=== PATIENT | female | born 1975 | race Caucasian/White ===

== ENCOUNTER 2023-09-10 07:55 | Outpatient (CLI) | payer OTHER, SELFPAY ==
[2023-09-10 12:13] LABS: Hematocrit 46.4 % (37.0-47.0); Hemoglobin 14.7 g/dL (12.0-15.0); Mean Corpuscular HGB Conc 31.7 g/dl (32-36); Mean Corpuscular Hemoglobin 26.7 pg (26-34); Mean Corpuscular Volume 84.4 fl (80-100); Platelet Count Result 319 k/mm3 (150-375); Red Cell Distribution Width 13.4 % (11.5-14.5); White Blood Count 9.4 K/mm3 (4.5-10.0)
[2023-09-10 12:32] LABS: LDL Cholesterol Direct 149 mg/dL
[2023-09-10 12:36] LABS: Alanine Aminotransferase 12 U/L (6-35); Albumin Level 3.9 g/dL (3.5-5.1); Alkaline Phosphatase 104 U/L (38-126); Anion Gap 3 mmol/L (4-12); Aspartate Amino Transferase 32 U/L (14-36); Bilirubin,Total 0.7 mg/dL (0.2-1.3); Blood Urea Nitrogen 9 mg/dL (7-17); Calcium 9.3 mg/dL (8.4-10.2); Carbon Dioxide 30 mmol/L (22-30); Chloride 100 mmol/L (98-107); Cholesterol 235 mg/dL (0-200); Estimated Glomerular Filt Rate > 60; Glucose 242 mg/dL (65-110); HDL Direct 56 mg/dL; Potassium 4.4 mmol/L (3.4-5.0); Sodium 133 mmol/L (137-145); Triglycerides 137 mg/dL (<150)
[2023-09-11 00:32] LABS: Creatine Kinase 43 U/L (30-135)
[2023-09-11 01:04] LABS: Hemoglobin A1C 11.8 % (<5.7)
== END 2023-09-10 07:56 | disposition home or self-care (01) ==
LOC: ANHGOSHLAB 07:56
PROVIDERS: PCP Family Medicine; Visit Provider Family Medicine
DX: M62.838 Other muscle spasm (principal); E11.9 Type 2 diabetes mellitus without complications; E66.9 Obesity, unspecified; Z79.899 Other long term (current) drug therapy
CPT/HCPCS: 36415; 80053; 80061; 82550; 83036; 84443; 85027

== ENCOUNTER 2023-09-19 10:40 | Emergency (ER) | payer OTHER, SELFPAY ==
[2023-09-19] VITALS (9 sets, daily range): BP systolic 118–142; BP diastolic 77–89; PULSE 84–114; RESP 14–19; TEMP 36.6–37.1; O2SAT 99–100
--- NOTE | ~2023-09-19 | XR_ITS ---
EXAMINATION: XR chest 2V DATE: 09/19/2023 11:14 INDICATION: Chest pain. Chest tightness. Dizziness. TECHNIQUE: Frontal and lateral views of the chest were obtained. COMPARISON: None. FINDINGS: There is no pneumonia, pleural effusion, or pneumothorax. The heart size is normal. IMPRESSION: 1. No acute cardiopulmonary disease. Reviewed, dictated and finalized at location A.
--- NOTE | 2023-09-19 10:42 | ECG_ITS ---
SEE SCANNED COPY FOR CONFIRMED REPORT MTDD
[2023-09-19 11:09] LABS: Basophils Absolute Auto 0.1 K/mm3 (0.0-0.1); Basophils Percent Auto 0.5 % (0.2-1.2); Eosinophils Absolute Auto 0.2 K/mm3 (0-0.3); Eosinophils Percent Auto 1.4 % (0-4.4); Hematocrit 45.1 % (37.0-47.0); Hemoglobin 14.8 g/dL (12.0-15.0); Immature Granulocyte Absolute 0.05 K/mm3 (0.00-0.031); Immature Granulocyte Percent A 0.5 % (0-0.5); Lymphocytes Absolute Auto 2.71 K/mm3 (0.9-3.2); Lymphocytes Percent Auto 25.2 % (18.3-44.2); Mean Corpuscular HGB Conc 32.8 g/dl (32-36); Mean Corpuscular Hemoglobin 26.9 pg (26-34); Mean Corpuscular Volume 81.9 fl (80-100); Mean Platelet Volume 9.8 fl (7.4-10.4); Monocytes Absolute Auto 0.7 K/mm3 (0.1-0.6); Monocytes Percent Auto 6.5 % (2.6-8.5); Neutrophils Absolute Auto 7.1 K/mm3 (1.3-6.7); Neutrophils Percent Auto 65.9 % (45.5-73.1); Platelet Count Result 274 k/mm3 (150-375); Red Blood Count 5.51 M/mm3 (4.2-5.4); Red Cell Distribution Width 13.1 % (11.5-14.5); White Blood Count 10.8 K/mm3 (4.5-10.0)
[2023-09-19 11:20] LABS: Alanine Aminotransferase 15 U/L (6-35); Albumin Level 4.4 g/dL (3.5-5.1); Alkaline Phosphatase 110 U/L (38-126); Anion Gap 9 mmol/L (4-12); Aspartate Amino Transferase 16 U/L (14-36); Bilirubin,Total 0.4 mg/dL (0.2-1.3); Blood Urea Nitrogen 11 mg/dL (7-17); Calcium 9.3 mg/dL (8.4-10.2); Carbon Dioxide 23 mmol/L (22-30); Chloride 101 mmol/L (98-107); Estimated CRCL calculation 131 ml/min; Estimated Glomerular Filt Rate > 60; Glucose 361 mg/dL (65-110); INR 0.9; Lipase 116 U/L (23-300); Potassium 4.3 mmol/L (3.4-5.0); Prothrombin Time 12.3 Seconds (11.1-14.7); Sodium 133 mmol/L (137-145)
[2023-09-19 11:21] LABS: Partial Thromboplastin Time 26.1 Seconds (22.3-36.8)
[2023-09-19 11:31] LABS: Troponin I < 0.012 ng/mL (0.000-0.034)
[2023-09-19] MEDS: MECLIZINE HCL 25 MG TABLET PO (12:13)
[2023-09-19] MEDS: SODIUM CHLORIDE 0.9% IV 1,000 ML 999 ML IV CONT (12:13)
[2023-09-19] MEDS: ONDANSETRON INJ 4 MG/2 ML VIAL IV PUSH (12:13)
--- NOTE | 2023-09-19 12:46 | ED.GENADULT ---
HPI - General Adult General Chief complaint: Chest Pain Stated complaint: chest pain Time Seen by Provider: 09/19/23 10:43 History of Present Illness HPI narrative: Patient is a 48-year-old female who presents to the ER with dizziness. Began last night and continues today. It hurt worse with movement of her head. It causes her nausea and chest tightness when her dizziness increases. Has not had this previously. No sinus congestion or sore throat or productive cough. No ringing in the ears. Related Data Allergies Allergy/AdvReac Type Severity Reaction Status Date / Time aspirin AdvReac Severe Difficulty Verified 09/19/23 10:41 Breathing empagliflozin AdvReac Severe Other Verified 09/19/23 10:41 [From Jardiance] sumatriptan [From Imitrex] AdvReac Severe Difficulty Verified 09/19/23 10:41 Breathing Review of Systems Review of Systems: All systems reviewed & are unremarkable except as noted in HPI and below Constitutional: Constitutional: Reports no additional constitutional complaints ENT: Reports vertigo, Denies nasal congestion and Denies sore throat Cardiovascular: Cardiovascular: Reports no additional cardiovascular complaints Respiratory: Respiratory: Reports no additional respiratory complaints Gastrointestinal: Gastrointestinal: Reports no additional gastrointestinal complaints Musculoskeletal: Musculoskeletal: Reports no additional musculoskeletal complaints PMFSH Past Medical History Medical History (Updated 09/19/23 @ 12:49 by Ricky Wall MD) Diabetes Hypertriglyceridemia Surgical History Surgical History (Updated 09/19/23 @ 12:47 by Ricky Wall MD) No pertinent past surgical history Family History Family History Father Diabetes mellitus Mother Diabetes mellitus Grandparent Diabetes mellitus Social History Social History Social History: Tea 1 cup daily Smoking packs per day: 2 Smoking cigarettes per day: 40.0 Years smoked: 20 Smoking pack-years: 40.00 Smoking status: Former smoker Tobacco type: cigarettes Alcohol intake: never Substance use: never Substance use type: does not use Living arrangements: with family Spiritual care concerns: No Exam Narrative: GENERAL: Well-appearing, well-nourished, and in no acute distress. HEAD: Normocephalic, atraumatic. EYES: PERRL and EOMI. ENT: Mucous membranes moist. TMs normal bilaterally. CHEST: Clear to auscultation. No respiratory distress. HEART: Regular rate and rhythm. Normal peripheral pulses. ABDOMEN: Soft, nontender, nondistended. EXTREMITIES: Normal range of motion. No edema. SKIN: Warm, dry, no rash. NEURO: Alert and oriented x3. PSYCH: Normal mood and affect. Course Course Emergency Course: Symptoms improved with fluids and meclizine. Discharge home with supportive care. Vital Signs Vital signs: Vital Signs Temperature 98.8 F 09/19/23 11:02 Pulse Rate 94 09/19/23 11:02 Respiratory Rate 16 09/19/23 11:02 Blood Pressure 142/89 H 09/19/23 11:02 Pulse Oximetry 100 09/19/23 11:02 Oxygen Delivery Room Air 09/19/23 11:02 Temperature 98.8 F 09/19/23 11:02 Pulse Rate 102 H 09/19/23 11:07 Respiratory Rate 16 09/19/23 11:02 Blood Pressure 122/85 09/19/23 11:07 Pulse Oximetry 100 09/19/23 11:02 Oxygen Delivery Room Air 09/19/23 11:05 Medical Decision Making Vital Signs Vital Signs: Vital Signs Temperature 98.8 F 09/19/23 11:02 Pulse Rate 94 09/19/23 11:02 Respiratory Rate 16 09/19/23 11:02 Blood Pressure 142/89 H 09/19/23 11:02 Pulse Oximetry 100 09/19/23 11:02 Oxygen Delivery Room Air 09/19/23 11:02 Temperature 98.8 F 09/19/23 11:02 Pulse Rate 102 H 09/19/23 11:07 Respiratory Rate 16 09/19/23 11:02 Blood Pressure 122/85 09/19/23 11:07 Pulse Oximetry 100 04
== END 2023-09-19 13:09 | disposition home or self-care (01) ==
PROVIDERS: Emergency Provider Emergency Medicine; PCP Family Medicine
DX: R42 Dizziness and giddiness (principal); E11.9 Type 2 diabetes mellitus without complications; F17.210 Nicotine dependence, cigarettes, uncomplicated
CPT/HCPCS: 36415; 71046; 80053; 83690; 84484; 85025; 85610; 85730; 93005; 96361; 96374; 99284; A9270; J2405; J7030

== ENCOUNTER 2023-10-01 07:04 | Day surgery (SDC) | payer OTHER, SELFPAY ==
[2023-09-08 10:12] VITALS: BMI 37.9
[2023-09-16 13:45] VITALS: BMI 36.5
--- NOTE | 2023-10-01 07:34 | WPDANESEPPF ---
Anes - Initial Pre Proc Eval Procedure: Operation Date: 10/01/23 09:30 Proposed Procedures p Screening Colonoscopy - Walt Del Rio MD Date/Time: 10/01/23 07:34 Surgeon: Walt Del Rio MD Pre Op Diagnosis: Screening for neoplasm of colon Patient Data Age: 48 Gender: F Height: 1.63 m Weight: 96.5 kg Allergies Allergy/AdvReac Type Severity Reaction Status Date / Time aspirin AdvReac Severe Difficulty Verified 10/01/23 08:13 Breathing empagliflozin AdvReac Severe Other Verified 10/01/23 08:13 [From Jardiance] sumatriptan [From Imitrex] AdvReac Severe Difficulty Verified 10/01/23 08:13 Breathing Home Medications Medication Instructions Recorded Confirmed Type cyclobenzaprine 10 mg tablet 10 mg PO TID PRN muscle spasm #30 09/05/23 10/01/23 Rx tabs metoprolol succinate 25 mg 25 mg PO DAILY #90 tabs 09/05/23 10/01/23 Rx tablet,extended release 24 hr Dexcom #1 ea 09/16/23 10/01/23 Rx atorvastatin 10 mg tablet 10 mg PO DAILY #90 tabs 09/16/23 10/01/23 Rx metformin 500 mg tablet,extended 2,000 mg PO DAILY #360 tabs 09/16/23 10/01/23 Rx release 24 hr sertraline 50 mg tablet 50 mg PO DAILY #90 tabs 09/16/23 10/01/23 Rx meclizine 12.5 mg tablet 12.5 mg PO TID PRN dizziness #14 09/19/23 10/01/23 Rx tabs Patient hx anesthesia problems: none Family hx anesthesia problems: none Results Review: All pre-operative results and documents have been reviewed as part of the pre-operative evaluation. [facility] Past Medical History Medical History (Updated 10/01/23 @ 07:34 by William Colby DO) Diabetes Hypertriglyceridemia Tachycardia Surgical History Surgical History (Updated 10/01/23 @ 07:34 by William Colby DO) History of hysterectomy Family History Family History Father Diabetes mellitus Mother Diabetes mellitus Grandparent Diabetes mellitus Social History Social History Social History: Tea 1 cup daily Smoking packs per day: 2 Smoking cigarettes per day: 40.0 Years smoked: 20 Smoking pack-years: 40.00 Smoking status: Former smoker Tobacco type: cigarettes Alcohol intake: never Substance use: never Substance use type: does not use Living arrangements: with family Spiritual care concerns: No Anes - Eval Final PreProcedure Day of Procedure 10/01/23 07:34 Patient weight: obese Heart: regular rate and rhythm Lungs: clear to auscultation Airway: Mallampati scale class II Neurological: alert and oriented Last oral intake: >/= 8 hours ASA classification: III Emergent: no Anesthetic plan: proceed Anesthesia type and monitoring: general GIVS and standard monitoring Results Review: All pre-operative results and documents have been reviewed as part of the pre-operative evaluation. Informed Consent: The patient's anesthetic plan and its attendant risks and benefits were discussed with the patient/family/POA. Questions were solicited and answers provided to the satisfaction of the patient/family/POA.
[2023-10-01 08:15] VITALS: BP 111/89; PULSE 90; RESP 16; TEMP 36.3; O2SAT 100; BMI 37.5
[2023-10-01] MEDS: LACTATED RINGERS 1,000 ML 150 ML IV CONT (08:32)
[2023-10-01 08:34] LABS: Glucose Point of Care 255 mg/dl (65-105)
--- NOTE | 2023-10-01 10:12 | PM.HPGS ---
History of Present Illness History of Present Illness Consent: Risks, benefits, and alternatives have been discussed and questions answered. Patient agrees to proceed with procedure. Chief complaint: Screening for neoplasm of colon Narrative: Sheila Snyder is a 48 year old female presents for screening colonoscopy. Patient reports her bowel habits are normal. She denies any bleeding. She has had no pain. Family history noncontributory. Review of Systems Review of Systems: All systems reviewed & are unremarkable except as noted in HPI and below PMFSH Past Medical History Medical History (Updated 10/01/23 @ 07:34 by William Colby DO) Diabetes Hypertriglyceridemia Tachycardia Surgical History Surgical History (Updated 10/01/23 @ 07:34 by William Colby DO) History of hysterectomy Family History Family History Father Diabetes mellitus Mother Diabetes mellitus Grandparent Diabetes mellitus Social History Social History Social History: Tea 1 cup daily Smoking packs per day: 2 Smoking cigarettes per day: 40.0 Years smoked: 20 Smoking pack-years: 40.00 Smoking status: Former smoker Tobacco type: cigarettes Alcohol intake: never Substance use: never Substance use type: does not use Living arrangements: with family Spiritual care concerns: No Meds Home Medications and Allergies Home Medications Medication Instructions Recorded Confirmed Type cyclobenzaprine 10 mg tablet 10 mg PO TID PRN muscle spasm #30 09/05/23 10/01/23 Rx tabs metoprolol succinate 25 mg 25 mg PO DAILY #90 tabs 09/05/23 10/01/23 Rx tablet,extended release 24 hr Dexcom #1 ea 09/16/23 10/01/23 Rx atorvastatin 10 mg tablet 10 mg PO DAILY #90 tabs 09/16/23 10/01/23 Rx metformin 500 mg tablet,extended 2,000 mg PO DAILY #360 tabs 09/16/23 10/01/23 Rx release 24 hr sertraline 50 mg tablet 50 mg PO DAILY #90 tabs 09/16/23 10/01/23 Rx meclizine 12.5 mg tablet 12.5 mg PO TID PRN dizziness #14 09/19/23 10/01/23 Rx tabs Allergies Allergy/AdvReac Type Severity Reaction Status Date / Time aspirin AdvReac Severe Difficulty Verified 10/01/23 08:13 Breathing empagliflozin AdvReac Severe Other Verified 10/01/23 08:13 [From Jardiance] sumatriptan [From Imitrex] AdvReac Severe Difficulty Verified 10/01/23 08:13 Breathing Vital Signs Vital Signs - 24 hr 10/01/23 08:15 Temperature 97.4 F L Pulse Rate 90 Respiratory Rate 16 Blood Pressure 111/89 Pulse Oximetry 100 Oxygen Delivery Room Air Exam Narrative: Physical exam reveals patient to be alert. Vital signs stable. HEENT exam is unremarkable. Patient is anicteric. Lungs are clear. Heart without murmur. Abdomen bowel sounds are present soft nontender with no organomegaly. Digital rectal exam is normal per Assessment and Plan Assessment and plan (1) Screening for colon cancer: Code(s): Z12.11 - Encounter for screening for malignant neoplasm of colon Status: Acute Assessment and Plan: Patient presents for screening colonoscopy. She appears to be at average risk for colon polyps.
[2023-10-01 10:43] VITALS: BP 125/84; PULSE 88; RESP 16; O2SAT 100
[2023-10-01 10:53] VITALS: BP 123/76; PULSE 90; RESP 16; O2SAT 100
[2023-10-01 11:03] VITALS: BP 125/77; PULSE 80; RESP 16; O2SAT 100
--- NOTE | 2023-10-01 13:34 | WPDANESPN ---
Anes - Prog Note Post-Op Date/Time: 10/01/23 13:34 Cardiovascular status: normal Respiratory status: normal Airway patency: baseline Mental status: baseline Post-Op hydration status: normal Vital Signs: Last Vital Signs Temp 36.3 C L 10/01/23 08:15 Pulse 80 10/01/23 11:03 Resp 16 10/01/23 11:03 BP 125/77 10/01/23 11:03 Pulse Ox 100 10/01/23 11:03 O2 Del Method Room Air 10/01/23 11:03 Pain Score (VAS): 0 I/O: Intake & Output 09/30/23 10/01/23 10/01/23 23:59 07:59 15:59 Intake Total 850 Balance 850 10/01/23 08:30 POC Capillary Glucose 255 H Post-procedural complaints: none Patient Feedback: Patient satisfied with anesthetic care. Other Findings: Patient vital signs back to baseline. Patient denies nausea and vomiting. Patient's pain under control. Patient OK for discharge.
== END 2023-10-01 11:10 | disposition home or self-care (01) ==
PROVIDERS: PCP Family Medicine; Visit Provider Internal Medicine Gastroenterology
PROC: 0DJD8ZZ Inspection of Lower Intestinal Tract, Via Natural or Artificial Opening Endoscopic (ICD-10-PCS; CPT 45378; principal; 2023-10-01 09:30)
DX: Z12.11 Encounter for screening for malignant neoplasm of colon (principal); K64.8 Other hemorrhoids
CPT/HCPCS: 45378

== ENCOUNTER 2023-12-16 08:11 | Outpatient (CLI) | payer OTHER, SELFPAY ==
[2023-12-16 13:09] LABS: Alanine Aminotransferase 15 U/L (6-35); Albumin Level 3.9 g/dL (3.5-5.1); Alkaline Phosphatase 142 U/L (38-126); Anion Gap 11 mmol/L (4-12); Aspartate Amino Transferase 39 U/L (14-36); Bilirubin,Total 0.5 mg/dL (0.2-1.3); Blood Urea Nitrogen 11 mg/dL (7-17); Calcium 9.4 mg/dL (8.4-10.2); Carbon Dioxide 26 mmol/L (22-30); Chloride 97 mmol/L (98-107); Cholesterol 156 mg/dL (0-200); Estimated Glomerular Filt Rate > 60; Glucose 336 mg/dL (65-110); HDL Direct 64 mg/dL; Potassium 4.5 mmol/L (3.4-5.0); Sodium 134 mmol/L (137-145); Triglycerides 99 mg/dL (<150)
[2023-12-16 13:20] LABS: LDL Cholesterol Direct 81 mg/dL
[2023-12-16 13:38] LABS: Creatinine Urine 48.5 mg/dL
[2023-12-16 13:41] LABS: MALB Creatinine Ratio < 12.4 mg/g (0-30); Microalbumin Urine Random < 6.0 mg/L (0-16.7)
[2023-12-17 18:39] LABS: Hemoglobin A1C 11.8 % (<5.7)
== END 2023-12-16 08:12 | disposition home or self-care (01) ==
LOC: ANHGOSHLAB 08:12
PROVIDERS: PCP Family Medicine; Visit Provider Nurse Practitioner
DX: E78.1 Pure hyperglyceridemia (principal); E11.9 Type 2 diabetes mellitus without complications
CPT/HCPCS: 36415; 80053; 80061; 82043; 83036

== ENCOUNTER 2024-03-04 09:00 | Outpatient (CLI) | payer OTHER, SELFPAY ==
[2024-03-04 14:49] LABS: Hematocrit 44.2 % (37.0-47.0); Hemoglobin 14.3 g/dL (12.0-15.0); Mean Corpuscular HGB Conc 32.4 g/dl (32-36); Mean Corpuscular Volume 83.6 fl (80-100); Mean Platelet Volume 10.3 fl (7.4-10.4); Platelet Count Result 322 k/mm3 (150-375); Red Blood Count 5.29 M/mm3 (4.2-5.4); Red Cell Distribution Width 12.9 % (11.5-14.5); White Blood Count 8.7 K/mm3 (4.5-10.0)
[2024-03-04 15:44] LABS: Alanine Aminotransferase 12 U/L (6-35); Albumin Level 4.2 g/dL (3.5-5.1); Alkaline Phosphatase 81 U/L (38-126); Anion Gap 8 mmol/L (4-12); Aspartate Amino Transferase 42 U/L (14-36); Bilirubin,Total 0.5 mg/dL (0.2-1.3); Blood Urea Nitrogen 10 mg/dL (7-17); Calcium 9.8 mg/dL (8.4-10.2); Carbon Dioxide 30 mmol/L (22-30); Chloride 97 mmol/L (98-107); Cholesterol 187 mg/dL (0-200); Estimated Glomerular Filt Rate > 60; Glucose 138 mg/dL (65-110); HDL Direct 50 mg/dL; Potassium 4.1 mmol/L (3.4-5.0); Sodium 135 mmol/L (137-145); Triglycerides 69 mg/dL (<150)
[2024-03-04 15:55] LABS: LDL Cholesterol Direct 110 mg/dL
[2024-03-04 16:04] LABS: Hemoglobin A1C 9.8 % (<5.7)
== END 2024-03-04 09:01 | disposition home or self-care (01) ==
LOC: ANHGOSHLAB 09:02
PROVIDERS: PCP Family Medicine; Visit Provider Family Medicine
DX: E11.9 Type 2 diabetes mellitus without complications (principal); E78.1 Pure hyperglyceridemia; E66.9 Obesity, unspecified; Z79.899 Other long term (current) drug therapy
CPT/HCPCS: 36415; 80053; 80061; 83036; 84443; 85027

== ENCOUNTER 2024-06-25 08:41 | Outpatient (CLI) | payer OTHER, SELFPAY ==
[2024-06-25 17:47] LABS: Hematocrit 41.5 % (37.0-47.0); Hemoglobin 13.5 g/dL (12.0-15.0); Mean Corpuscular HGB Conc 32.5 g/dl (32-36); Mean Corpuscular Hemoglobin 27.2 pg (26-34); Mean Corpuscular Volume 83.7 fl (80-100); Mean Platelet Volume 9.9 fl (7.4-10.4); Platelet Count Result 286 k/mm3 (150-375); Red Blood Count 4.96 M/mm3 (4.2-5.4); White Blood Count 7.7 K/mm3 (4.5-10.0)
[2024-06-25 18:26] LABS: Alanine Aminotransferase 13 U/L (6-35); Albumin Level 3.9 g/dL (3.5-5.1); Alkaline Phosphatase 106 U/L (38-126); Anion Gap 7 mmol/L (4-12); Aspartate Amino Transferase 20 U/L (14-36); Bilirubin,Total 0.6 mg/dL (0.2-1.3); Blood Urea Nitrogen 13 mg/dL (7-17); Calcium 8.9 mg/dL (8.4-10.2); Carbon Dioxide 30 mmol/L (22-30); Chloride 99 mmol/L (98-107); Cholesterol 221 mg/dL (0-200); Estimated Glomerular Filt Rate > 60; Glucose 176 mg/dL (65-110); HDL Direct 69 mg/dL; Potassium 4.2 mmol/L (3.4-5.0); Sodium 136 mmol/L (137-145); Triglycerides 71 mg/dL (<150)
[2024-06-25 18:32] LABS: LDL Cholesterol Direct 119 mg/dL
[2024-06-25 21:05] LABS: Hemoglobin A1C 8.6 % (<5.7)
== END 2024-06-25 08:42 | disposition home or self-care (01) ==
LOC: ANHGOSHLAB 08:43
PROVIDERS: PCP Family Medicine; Visit Provider Family Medicine
DX: E78.5 Hyperlipidemia, unspecified (principal); E11.9 Type 2 diabetes mellitus without complications; E78.1 Pure hyperglyceridemia; E66.9 Obesity, unspecified; Z79.899 Other long term (current) drug therapy
CPT/HCPCS: 36415; 80053; 80061; 83036; 84443; 85027

== ENCOUNTER 2024-07-16 16:56 | Emergency (ER) | payer OTHER, SELFPAY ==
--- NOTE | ~2024-07-16 | XR_ITS ---
Exam: Abdomen 1V HISTORY: left CVA tenderness. COMPARISON: None. TECHNIQUE: Supine images of the abdomen FINDINGS: Bowel gas pattern is non-obstructive. There is no free air or deep sulci. 11 mm focus of increased density projects to the left of midline presumably projecting over the left kidney. Lung bases are unremarkable. Bones and soft tissues are unremarkable. IMPRESSION: Nonspecific, nonobstructive bowel gas pattern. Possible 11 mm left renal calculus, as detailed above. Reviewed, dictated and finalized at location A. ORT RAMP AGENT
--- NOTE | 2024-07-16 16:59 | ED.FEMALEGU ---
HPI - Female Genitourinary General Chief complaint: Urogenital-Female Stated complaint: uti symptoms Time Seen by Provider: 07/16/24 16:57 Source: patient Mode of arrival: ambulatory Limitations: no limitations History of Present Illness HPI Narrative: Patient is a 49-year-old female who presents with left low back pain that started 3 days ago. Patient then developed mild burning with urination. Denies history of kidney stone. Denies any fever, chills, nausea, vomiting. States she has been drinking in increased amount cranberry juice and water. Denies any blood in urine MD elicited complaint: dysuria Related Data Home Medications ?Medication ?Instructions ?Recorded ?Confirmed ?Last Taken ?Type sertraline 100 mg tablet 100 mg PO DAILY 06/29/24 06/29/24 Unknown History Allergies Allergy/AdvReac Type Severity Reaction Status Date / Time aspirin AdvReac Severe Difficulty Verified 07/16/24 17:18 Breathing empagliflozin (From AdvReac Severe Other Verified 07/16/24 17:18 Jardiance) sumatriptan (From Imitrex) AdvReac Severe Difficulty Verified 07/16/24 17:18 Breathing Review of Systems Review of Systems: All systems reviewed & are unremarkable except as noted in HPI and below Constitutional: Constitutional: Denies chills, Denies fever(s), Denies headache(s), Denies malaise and Denies weakness Eyes: Eyes: Denies change in vision, Denies eye discharge and Denies irritation ENT: Denies otalgia, Denies headache(s), Denies nasal congestion, Denies nasal discharge, Denies sinus pain and Denies sore throat Cardiovascular: Cardiovascular: Denies chest pain, Denies edema, Denies palpitations and Denies dyspnea Respiratory: Respiratory: Denies cough and Denies dyspnea Gastrointestinal: Gastrointestinal: Denies abdominal pain, Denies diarrhea, Denies nausea and Denies vomiting Genitourinary: Genitourinary: Denies hematuria, Denies nocturia, Reports dysuria, Reports flank pain and Reports urinary urgency Musculoskeletal: Musculoskeletal: Denies back pain and Denies numbness Integumentary/Breasts: Skin/Breast: Denies pruritus and Denies rash Neurologic: Denies headache(s), Denies numbness and Denies weakness Psychiatric: Psychiatric: Reports no additional psychiatric complaints Endocrine: Endocrine: Denies palpitations PMFSH Past Medical History Medical History Hypertriglyceridemia Tachycardia Diabetes Surgical History Surgical History History of hysterectomy Family History Family History Father Diabetes mellitus Mother Diabetes mellitus Grandparent Diabetes mellitus Social History Social History Social History: Tea 1 cup daily Smoking packs per day: 2 Smoking cigarettes per day: 40.0 Years smoked: 20 Smoking pack-years: 40.00 Smoking status: Former smoker Tobacco type: cigarettes Alcohol intake: never Substance use: never Substance use type: does not use Living arrangements: with family Spiritual care concerns: No Comments At time of signature, agree with nursing past medical, surgical, social and family history. There is no relevant family history pertinent to the presenting complaint. Exam Const: General: cooperative, healthy appearing, comfortable, no acute distress and well nourished Nutritional Appearance: well nourished Orientation/consciousness: patient oriented x3 HENMT: Head: normocephalic and atraumatic Ears: external ears normal Face/Nose/Sinus: Normal external nose present, Normal nares present and normal facial exam Face and sinus: normal facial exam Eyes: General: appearance normal, both eyes and all related structures Pupils: Equal, round and reactive pupils present EOM: EOMs intact bilaterally Neck: Neck: normal visual inspection, full ROM and supple Chest: Chest palpation & inspection: normal inspection of the chest Resp: Effort & Inspection: normal respiratory effort and able to speak in complete sentences Cardio: Rate: regular rate Rhythm: regular rhythm GI: Inspection: normal to inspection GI Palp: No abdominal tenderness and Yes Soft to palpation : General: Yes CVA tenderness on the left Back/Spine/Pelvis: Back: no CVA tenderness Skin: General skin exam: normal color and no rashes or lesions noted Neuro: General: patient oriented x3 and moves all extremities Cranial nerves: Yes Equal, round and reactive pupils present Extrem: General: normal to inspection and full ROM Psych: Appearance: grossly normal and well kempt Course Course Emergency Course: Patient being transferred to [facility] for 11 mm kidney stone. Urology MD torres recommends CT scan. Pain management Portions of this record may have been created with voice recognition software Level of Care: Express Care Visit Vital Signs Vital signs: Vital Signs Temperature 37.1 C 07/16/24 17:11 Pulse Rate 103 H 07/16/24 17:11 Respiratory Rate 16 07/16/24 17:11 Blood Pressure 112/77 07/16/24 17:11 Pulse Oximetry 100 07/16/24 17:11 Temperature 37.1 C 07/16/24 17:11 Pulse Rate 103 H 07/16/24 17:11 Respiratory Rate 16 07/16/24 17:11 Blood Pressure 112/77 07/16/24 17:11 Pulse Oximetry 100 07/16/24 17:11 Reviewed Transfer Transfered to: [facility] Transportation: Other (Private auto) Transfer rationale: 11 mm kidney stone. Urology MD torres recommends CT scan. Pain management Accepting physician: Gladys MALDONADO MDM - Female Genitourinary MDM Narrative Medical decision making narrative: Patient has significant CVA tenderness even on light palpation. KUB showed 11 mm stone with high probability of still in kidney. Called and spoke with MD torres with Urology about plan of care. Recommendation for CT scan to confirm kidney stone placement along with any obstruction or hydronephrosis. Also concern for smaller stone movement that is not visible on KUB. Discussed plan of care with patient and they are in agreement. Differential Diagnosis Differential diagnosis: Likely urinary tract infection and other (Kidney stone) Medical Records Attestation: I reviewed the patient's medical records. Lab Data Attestation: I reviewed the patient's lab results. Labs: Lab Results 07/16/24 Range/Units 17:16 POC Urine Color Dark POC Urine Clarity Clear POC Urine pH 6.0 POC Ur Specif [place] 1.030 POC Urine Protein 2+ (Negative) POC Ur Glucose (UA) Negative (Negative) POC Urine Ketones Negative (Negative) POC Urine Blood Negative (Negative) POC Urine Nitrite Negative (Negative) POC Urine Bilirubin Negative (Negative) POC Urine Urobilinogen 1.0 POC U Leukocyte Esteras Trace (Negative) Imaging Data Radiologist's impression: FINDINGS: Bowel gas pattern is non-obstructive. There is no free air or deep sulci. 11 mm focus of increased density projects to the left of midline presumably projecting over the left kidney. Lung bases are unremarkable. Bones and soft tissues are unremarkable. IMPRESSION: Nonspecific, nonobstructive bowel gas pattern. Possible 11 mm left renal calculus, as detailed above. Discharge Plan Discharge Clinical Impression: Renal calculus or stone Patient Disposition: Acute Care Hospital Condition: Stable Additional Instructions: Flomax as prescribed. Pain medication as needed and directed. Drink plenty of fluids. Strain urine to collect stone. Call your doctor in the morning to make a follow-up appointment for further care. Return to the ER if needed for severely worsening symptoms or problems. Patient Language: Azeri Prescriptions: No Action cyclobenzaprine 10 mg tablet 10 mg PO TID PRN (Reason: muscle spasm) Qty: 30 0RF ropinirole 0.5 mg tablet 0.5 mg PO QHS Qty: 90 1RF atorvastatin [Lipitor] 20 mg tablet 20 mg PO QHS Qty: 90 1RF lisinopril 2.5 mg tablet 2.5 mg PO DAILY Qty: 90 1RF sertraline 100 mg tablet 100 mg PO DAILY meloxicam 7.5 mg tablet 7.5 mg PO DAILY Qty: 90 0RF (DME) FreeStyle Natalia 3 [place] Misc See Rx Instructions .Route Qty: 1 5RF Rx Instructions: As directed (DME) FreeStyle Nataila 3 Sensor Device See Rx Instructions .Route Qty: 3 5RF Rx Instructions: As directed metformin 500 mg tablet extended release 24 hr 2,000 mg PO DAILY Qty: 360 1RF metoprolol succinate 25 mg tablet extended release 24 hr 25 mg PO DAILY Qty: 90 1RF omeprazole 20 mg capsule,delayed release(DR/EC) 20 mg PO DAILY Qty: 90 1RF Mounjaro 7.5 mg/0.5 mL pen injector 7.5 mg subcut WEEKLY Qty: 2 0RF Follow-up/Referrals: Saúl Torres MD [Physician] - 2 Days (FINDINGS: Bowel gas pattern is non-obstructive. There is no free air or deep sulci. 11 mm focus of increased density projects to the left of midline presumably projecting over the left kidney. Lung bases are unremarkable. Bones and soft tissues are unremarkable. IMPRESSION: Nonspecific, nonobstructive bowel gas pattern. Possible 11 mm left renal calculus, as detailed above.) Anila Fairchild DO [Primary Care Provider] - 3 Days Time of Disposition: 18:28
[2024-07-16 17:11] VITALS: BP 112/77; PULSE 103; RESP 16; TEMP 37.1; O2SAT 100
[2024-07-16 17:20] LABS: EDUAAPPEAR Clear; EDUABILI Negative (Negative); EDUABLOOD Negative (Negative); EDUACOLOR1 Dark; EDUAGLUCOSE Negative (Negative); EDUAKETONE Negative (Negative); EDUALEUKO Trace (Negative); EDUANITRATE Negative (Negative); EDUAPROTEIN 2+ (Negative)
== END 2024-07-16 18:44 | disposition short-term general hospital (02) ==
PROVIDERS: Emergency Provider Nurse Practitioner Family; PCP Family Medicine
DX: N20.0 Calculus of kidney (principal); Z87.891 Personal history of nicotine dependence; E11.9 Type 2 diabetes mellitus without complications; E78.1 Pure hyperglyceridemia
CPT/HCPCS: 74018; 81003; 99213; G0463

== ENCOUNTER 2024-07-16 18:51 | Emergency (ER) | payer OTHER, SELFPAY ==
--- NOTE | ~2024-07-16 | CT_ITS ---
CLINICAL INDICATION: Left flank pain COMPARISON: None. TECHNIQUE: Multiple contiguous axial images of the abdomen and pelvis were performed without the admi nistration of intravenous contrast The dose-length product (DLP) was 1053.98 mGy-cm. Automated exposure control and iterative reconstruction technique were employed. FINDINGS/OBSERVATIONS: Visualized lower thorax: The bilateral lung bases are clear. The heart is of normal size, without pericardial effusion. Small hiatal hernia is present. Liver: The liver demonstrates homogeneous attenuation and is enlarged measuring 20 cm in longitudinal dimens ion. Gallbladder and biliary system: The gallbladder is only minimally distended, and otherwise unremarkable. Pancreas: Limited evaluation of the pancreas secondary to the lack of intravenous contrast. Spleen: Punctate calcifications identified within the splenic parenchyma, suggesting prior granulomatous dise ase. The remainder of the spleen demonstrates otherwise homogeneous attenuation and is not enlarged measur ing cm in longitudinal dimension. Kidneys: Punctate calcifications within the right kidney suggesting medullary calcinosis. A 10 mm calculus is identified within the lower pole of the left kidney. No hydronephrosis is detected bilaterally. Adrenal glands: Unremarkable. Gastrointestinal tract: Colonic diverticulosis without surrounding inflammatory change. Fecal stasis within the colon. Appendix: The air-filled appendix is of normal caliber (axial series, images 151 through 157). Vasculature: Trace calcified atherosclerotic disease. Lymph nodes: Limited evaluation without intravenous contrast. Pelvic structures: The bladder is compressed, and otherwise unremarkable The uterus is surgically absent. Body wall and musculoskeletal: Degenerative disease within the lumbar spine specifically at the level of L2/L3 with osteophyte forma tion, disc space narrowing, and endplate changes. IMPRESSION: 10 mm calculus within the lower pole of the left kidney without hydronephrosis. Hepatomegaly. 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 Reviewed, dictated and finalized at location A. [employer] STUDENT [employer]ION
--- OUTSIDE RECORDS SUMMARY | 2024-07-16 18:53 | XMS_ITS | Encounter Summary ---
Author Organization [facility] Address [address] [place] [id number] Care Team Providers Care Plaster And Stucco Worker Name Role Phone Kael Scott MD Primary Care Provider [phone] Encounter Details Date Type Department Care Team (Late st Contact Info) Description 11/14/2018 Abstract SFL CONVERSION [address] [place] [id number] , Generic Conversion, Social History Tobacco Use Types Packs/Day Years Used Date Smoking Tobacco: Never Assessed Comments Unknown Sex and Gender Information Value Date Recorded Sex Assigned at Not on file Legal Sex Female 8:01 PM CDT Gender Identity Not on file Sexual Orientation Not on file documented as of this encounter Plan of Treatment Not on file documented as of this encounter Visit Diagnoses Not on filedocumented in this encounter Additional Health Concerns Infection Onset Date Last Indicated Resolved Time COVID-19 Rule Out 05/13/2020 05/13/2020 05/14/2020 5:53 PM [employer] COVID-19 Confirmed Comment:Known COVID-19 positive per chart, symptom onset 02/22/21 per chart, confirmed positive w/ [facility] ([facility]) In collaboration with 4th floor schedule planning manager, Dr. Bonilla, and IP, patient cleared from COVID-19 isolation [facility] ([facility] 03/05/2021 03/05/202103/06 3:48 PM CDT documented as of this encounter Care Teams Plaster And Stucco Worker Relationship Specialty Start Date End Date Kael Scott MD [address] [place] [id number] PCP - General FAMILY PRACTICE 06/04/19 documented as of this encounter
--- OUTSIDE RECORDS SUMMARY | 2024-07-16 18:53 | XMS_ITS | Clinical Summary ---
Author Organization [facility] Address [address] [place] [address] Care Team Providers Care Sand Screener Operator Name Role Phone Kael Scott MD Primary Care Provider Allergies Active Allergy Reactions Criticality Noted Date Comments Aspirin GI Upset 05/09/2020 Sumatriptan Shortness of Breath High 05/09/2020 Medications atorvastatin 80 MG tabletIndicati ons:Hyperlipid emia Take 40 mg by mouth nightly at bedtime. Indications: High Amount of Fats in the Blood 8 Active Multiple Vitamins-[place] als (MULTIVITAMIN ADULTS OR)Indications :Nutritional Support Take by mouth daily. Indications: Nutritional Support Active metoprolol succinate ER 25 MG 24 hr tablet Take 25 mg by mouth daily. 1 Active insulin glargine 100 UNIT/ML injection (PEN) Inject 18 Units into the skin nightly at bedtime. 1 pen 1 Active insulin lispro, 1 Unit Dial, 100 UNIT/ML injection (PEN) Inject 7 Units into the skin see administration instructions. Humalog 7 units for breakfast and lunch, 10 units for supper meal. 1 pen 1 Active cyclobenzaprin e (FLEXERIL) 10 MG tablet Take 1 tablet by mouth daily. 2 Active naproxen (NAPROSYN) 500 MG tablet Take 1 tablet by mouth daily as needed. 2 Active HYDROcodone-ac etaminophen (NORCO) 5-325 MG tabletIndicati ons:Chronic Pain Take 1-2 tablets by mouth every 6 (six) hours as needed. Indications: Chronic Pain 30 tablet 2 Active Active Problems Problem Noted Date Diagnosed Date Nontraumatic incomplete tear of left rotator cuf f 02/18/2022 Biceps tendinitis of left upper extremity 2021 Type 2 diabetes mellitus wit hout complication, unspecified whether group home insulin use ([facility]) 03/04/2021 Overview (03/04/2021): Without manager terminal insulin use DKA (diabetic ketoacidosis) ([facility]) Pneumonia due to COVID-19 virus 03/03/2021 Immunizations Name Administration Dates Next Due Fluzone 6 Months+ Quad (0.5 mL Prefilled Syringe ) 03/07/2021 Family History Medical History Relation Comments Diabetes Father Relation Status Comments Father Alive Mother Alive Social History Tobacco Use Types Packs/Day Years Used Date Smoking Tobacco: Former Smokeless Tobacco: Never Alcohol Use Standard Drinks/Week Comments Not Currently 0 (1 standard drink = 0.6 oz pur e alcohol) Humiliation, Afraid, Rape, and Kick questionnair e Answer Date Recorded Within the last year, have y ou been afraid of your partner or ex-partner? No 03/03/2021 Within the last year, have y ou been humiliated or emotionally abused in other ways by your partner or ex-partner? No Within the last year, have y ou been kicked, hit, slapped, or otherwise physically hurt by your partner or ex-partner? No 03/03/2021 Within the last year, have y ou been raped or forced to have any kind of sexual activity by your partner or ex-partner? No 03/03/2021 Social Connection and Isolat ion Panel [NHANES] Answer Date Recorded In a typical week, how many times do you talk on the phone with family, friends, or neighbors? More than three times a week 03/04/2021 How often do you get togethe r with friends or relatives? More than three times a week 03/04/2021 How often do you attend chur or confucianism services? Never 03/04/2021 Do you belong to any clubs o r organizations such as scientologist groups, unions, fraternal or athletic groups, or school groups? No 03/04/2021 How often do you attend meet ings of the clubs or organizations you belong to? Never 03/04/2021 Marital Status Not on file 03/04/2021 AUDIT-C Answer Date Recorded Q1: How often do you have a drink containing alc ohol? Never 03/04/2021 Average Number of Drinks Not on file 021 Frequency of Binge Drinking Not on file 02/08 Overall Financial Resource Strain (CARDIA) Answe r Date Recorded How hard is it for you to pa y for the very basics like food, housing, medical care, and heating? Not hard at all 03/04/2021 PHQ-2 Answer Date Recorded PHQ-2 Score - If the patient scores above 3, please move on to questions 3-9 0 03/04/2021 [facility] of Occupat ional Health - Occupational Stress Questionnaire Answer Date Recorded Do you feel stress - tense, restless, nervous, or anxious, or unable to sleep at night because your mind is troubled all the time - these days? Not at all 03/04/2021 Hunger Vital Sign Answer Date Recorded Within the past 12 months, y ou worried that your food would run out before you got the money to buy more. Never true 03/04/20 21 Within the past 12 months, t he food you bought just didn't last and you didn't have money to get more. Never true 03/04/2021 PRAPARE - Transportation Answer Date Re corded In the past 12 months, has l ack of transportation kept you from medical appointments or from getting medications? No 02/08 In the past 12 months, has l ack of transportation kept you from meetings, work, or from getting things needed for daily living? No 03/04/2021 Housing Stability Vital Sign Answer Stu e Recorded In the last 12 months, was t here a time when you were not able to pay the mortgage or rent on time? No 03/04/2021 Number of Places Lived in the Last Year Not on f ile 03/04/2021 In the last 12 months, was t here a time when you did not have a steady place to sleep or slept in a correction (including now)? No 03/04/2021 Comments No Sex and Gender Information Value Date Recorded Sex Assigned at Not on file Legal Sex Female 8:01 PM CDT Gender Identity Not on file Sexual Orientation Not on file Last Filed Vital Signs Vital Sign Reading Time Taken Comments Blood Pressure 117/73 03/07/2021 7:51 AM CDT Pulse 103 03/07/2021 7:51 AM CDT Temperature 36.4 C (97.5 F) 03/07/2021 7:51 AM CDT Respiratory Rate 20 03/07/2021 7:51 AM CDT Oxygen Saturation 97% 03/07/2021 7:51 AM CDT Inhaled Oxygen Concentration - - Weight 100.7 kg (222 lb) 04/09/2022 3:48 PM CDT Height 162.6 cm (5' 4 ) 04/09/2022 3:48 PM CDT Body Mass Index 38.11 04/09/2022 3:48 PM CDT Plan of Treatment Health Maintenance Due Date Last Done Comments Colorectal Cancer Screening Colonoscopy (10 Years) 1976 Kidney Health Evaluation 1976 Lipid Panel 1976 Annual Physical 1979 Pneumococcal Vaccine: Pediatrics (0 to 5 Years) and At-Risk Patients (6 to 64 Years) (1 of 2 - PCV) 1982 DTaP, Tdap and Td Vaccines (2 - Tdap) 1987 01/07/1987, 01/07/1982, 02/07/1977, Additional history exists Diabetes: Retinopathy Eye Exam 1994 Hepatitis C 1994 Hepatitis B Vaccines (1 of 3 - 19+ 3-dose series) 1995 Mammogram Screening 2016 Hemoglobin A1C 09/02/2021 03/05/2021 COVID-19 Vaccine (3 - 2023- season) 2024 10/13/2020, 09/15/2020 Influenza Adult (#1) 2024 03/07/2021 Meningococcal B Vaccine Aged Out No l onger eligible based on patient's age to complete this topic Meningococcal Vaccine Aged Out No jeremiah roman eligible based on patient's age to complete this topic RSV Immunizations Under 20 Months Aged Out No longer eligible based on patient's age to complete this topic Procedures Procedure Name Priority Date/Time Associated Diagnosis Comments HEMOGLOBIN, GLYCOSYLATED STAT 03/05/2021 5:20 AM CDT from Last 3 Months or Most Recently Relevant to Health Maintenance Results * (ABNORMAL) HEMOGLOBIN, GLYCATED (03/05/2021 5:20 AM CDT) HGB A1C 9.4(H) <5.7 % 03/05/2021 6:[address] [facility] ESTIMATED AVG GLUCOSE 223(H) 74 - 114 MG/DL 03/05/2021 6:[address] [facility] 03/05/2021 5:20 AM CDT Chaya Hernandez MD LABORATORY Final Result Performing Organization Address City/State/[facility] Co de Phone Number [facility] [address] [place] [address], [phone] from Last 3 Months or Most Recently Relevant to Health Maintenance Insurance ROSIO RAYA [phone] [employer] Advance Directives * Full Code (Latest Code Status on File) Date Activated Date Inactivated Comments 03/05/2021 3:35 AM 03/07/2021 4:32 PM * Full Code Date Activated Date Inactivated Comments 03/04/2021 11:12 PM 03/05/2021 3:32 AM * Full Code Date Activated Date Inactivated Comments 05/16/2020 2:06 PM 05/17/2020 2:09 PM Care Teams Sand Screener Operator Relationship Specialty Start Date End Date Kael Scott MD [address] [place] [address] PCP - General FAMILY PRACTICE 06/04/19
[2024-07-16 18:55] VITALS: BP 126/75; PULSE 102; RESP 17; TEMP 36.5; O2SAT 100
--- NOTE | 2024-07-16 19:51 | ED.FEMALEGU ---
HPI - Female Genitourinary General Chief complaint: Urogenital-Female Stated complaint: kidney stone Time Seen by Provider: 07/16/24 19:51 Focused HPI: This is a 49-year-old female that presents to the emergency department for left flank pain. Ongoing over the last couple of days. Reports some associated dysuria. Denies fevers or hematuria. Seen at urgent care and sent to the ER for further evaluation of kidney stone. GENERAL: Well-appearing, well-nourished, and in no acute distress. HEAD: Normocephalic, atraumatic. CHEST: Clear to auscultation. ?No respiratory distress. HEART: Regular rate and rhythm.? NEURO: ?Alert and oriented x3. Patient screened in triage and initial orders placed.? ?Additional care and disposition to be based upon?diagnostic testing and treatment. Related Data Home Medications ?Medication ?Instructions ?Recorded ?Confirmed ?Last Taken ?Type sertraline 100 mg tablet 100 mg PO DAILY 06/29/24 06/29/24 Unknown History Allergies Allergy/AdvReac Type Severity Reaction Status Date / Time aspirin AdvReac Severe Difficulty Verified 07/16/24 17:18 Breathing empagliflozin (From AdvReac Severe Other Verified 07/16/24 17:18 Jardiance) sumatriptan (From Imitrex) AdvReac Severe Difficulty Verified 07/16/24 17:18 Breathing Review of Systems Review of Systems: CONSTITUTIONAL: Denies fever GASTROINTESTINAL: Denies abdominal pain, nausea, vomiting GENITOURINARY: Denies hematuria. MUSCULOSKELETAL: Reports back pain All systems reviewed & are unremarkable except as noted in HPI and below PMFSH Past Medical History Medical History Hypertriglyceridemia Tachycardia Diabetes Surgical History Surgical History History of hysterectomy Family History Family History Father Diabetes mellitus Mother Diabetes mellitus Grandparent Diabetes mellitus Social History Social History Social History: Tea 1 cup daily Smoking packs per day: 2 Smoking cigarettes per day: 40.0 Years smoked: 20 Smoking pack-years: 40.00 Smoking status: Former smoker Tobacco type: cigarettes Alcohol intake: never Substance use: never Substance use type: does not use Living arrangements: with family Spiritual care concerns: No Exam Narrative: GENERAL: Well-appearing, well-nourished, and in no acute distress. HEAD: Normocephalic, atraumatic. EYES: EOMI. CHEST: Clear to auscultation. No respiratory distress. No wheezes rales or rhonchi HEART: Regular rate and rhythm. No murmur heard. Normal peripheral pulses. ABDOMEN: Soft, nontender, nondistended, normal active bowel sounds. EXTREMITIES: Normal range of motion. No edema. SKIN: Warm, dry, no rash. NEURO: No focal deficits. Alert and oriented x3. PSYCH: Normal mood and affect Course Course Emergency Course: patient updated on her workup and agrees with plan of care Consultations Consultation #1: Spoke with urology, Dr. Tariq about patient and workup. Patient may follow up in clinic Date: 07/16/24 Vital Signs Vital signs: Vital Signs Temperature 97.7 F 07/16/24 18:55 Pulse Rate 102 H 07/16/24 18:55 Respiratory Rate 17 07/16/24 18:55 Blood Pressure 126/75 07/16/24 18:55 Pulse Oximetry 100 07/16/24 18:55 Oxygen Delivery Room Air 07/16/24 18:55 Temperature 97.7 F 07/16/24 18:55 Pulse Rate 102 H 07/16/24 18:55 Respiratory Rate 17 07/16/24 18:55 Blood Pressure 126/75 07/16/24 18:55 Pulse Oximetry 100 07/16/24 18:55 Oxygen Delivery Room Air 07/16/24 18:55 MDM - Female Genitourinary MDM Narrative Medical decision making narrative: Patient presents to the emergency department for left-sided low back pain. Found to have a kidney stone on KUB at Urgent Care. Sent to the ER for further evaluation. She is afebrile and nontoxic appearing. CBC with mild leukocytosis to 10.1. Metabolic panel normal appearing kidney function. Urine at Urgent Care without overt signs of infection. CT abdomen pelvis shows a 10 mm calculus within the lower pole of the left kidney without hydronephrosis. Spoke with urology, Dr. Tariq about patient and workup. Patient may follow up in clinic. patient updated on her workup and agrees with plan of care. She was given warnings to return to the ER Differential Diagnosis Differential diagnosis: Likely urinary tract infection, cystitis and other (kidney stone, muscle strain) Lab Data Attestation: I reviewed the patient's lab results. 07/16/24 20:43 07/16/24 20:43 Labs: Lab Results 07/16/24 Range/Units 20:43 WBC 10.1 H (4.5-10.0) K/mm3 RBC 5.01 (4.2-5.4) M/mm3 Hgb 13.7 (12.0-15.0) g/dL Hct 41.2 (37.0-47.0) % MCV 82.2 (80-100) fl MCH 27.3 (26-34) pg MCHC 33.3 (32-36) g/dl RDW 12.8 (11.5-14.5) % Plt Count 272 (150-375) k/mm3 MPV 9.5 (7.4-10.4) fl Immature Gran % (Auto) 0.3 (0-0.5) % Neut % (Auto) 54.9 (45.5-73.1) % Lymph % (Auto) 34.6 (18.3-44.2) % [place] % (Auto) 7.5 (2.6-8.5) % Eos % (Auto) 2.3 (0-4.4) % Baso % (Auto) 0.4 (0.2-1.2) % Lymph # (Auto) 3.49 H (0.9-3.2) K/mm3 [place] # (Auto) 0.8 H (0.1-0.6) K/mm3 Eos # (Auto) 0.2 (0-0.3) K/mm3 Baso # (Auto) 0.0 (0.0-0.1) K/mm3 Abs Immat Gran (auto) 0.03 (0.00-0.031) K/mm3 Absolute Neuts (auto) 5.5 (1.3-6.7) K/mm3 Absolute Nucleated RBC 0.000 (0.0-0.012) K/mm3 Nucleated RBC % 0.0 (0.0-0.2) % Sodium 138 (137-145) mmol/L Potassium 3.8 (3.4-5.0) mmol/L Chloride 100 (98-107) mmol/L Carbon Dioxide 29 (22-30) mmol/L Anion Gap 9 (4-12) mmol/L BUN 10 (7-17) mg/dL Creatinine 0.61 L (0.7-1.0) mg/dL Estim Creat Clear Calc 105 ml/min Estimated GFR > 60 (59 - ) Glucose 135 H (65-110) mg/dL Calcium 9.5 (8.4-10.2) mg/dL Total Bilirubin 0.5 (0.2-1.3) mg/dL AST 16 (14-36) U/L ALT 15 (6-35) U/L Alkaline Phosphatase 81 (38-126) U/L Total Protein 8.0 (6.3-8.2) g/dL Albumin 4.2 (3.5-5.1) g/dL Imaging Data Radiologist's impression: ITS Impressions Abdomen/Pelvis CT 07/16/24 21:32 IMPRESSION: 10 mm calculus within the lower pole of the left kidney without hydronephrosis. Hepatomegaly. 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 Critical Care Time Critical Care Time Critical Care Time: No Discharge Plan Discharge Clinical Impression: Kidney stone Patient Disposition: Home, Self-Care Condition: Stable Instructions: Kidney Stones (ED) Additional Instructions: Return to the ER if you experience fever, abdominal pain with nausea and vomiting, you are unable to keep down liquids or solids, pain or burning with urination, blood in the urine or any other symptoms that are concerning to you You do have a stone that is still in your kidney and not blocking the ureter currently Remain well hydrated. Soaz-jdr-eblloyv pain medication as needed Follow up with urology Patient Language: Lithuanian Prescriptions: No Action cyclobenzaprine 10 mg tablet 10 mg PO TID PRN (Reason: muscle spasm) Qty: 30 0RF ropinirole 0.5 mg tablet 0.5 mg PO QHS Qty: 90 1RF atorvastatin [Lipitor] 20 mg tablet 20 mg PO QHS Qty: 90 1RF lisinopril 2.5 mg tablet 2.5 mg PO DAILY Qty: 90 1RF sertraline 100 mg tablet 100 mg PO DAILY meloxicam 7.5 mg tablet 7.5 mg PO DAILY Qty: 90 0RF (DME) FreeStyle Natalia 3 [place] Misc See Rx Instructions .Route Qty: 1 5RF Rx Instructions: As directed (DME) FreeStyle Natalia 3 Sensor Device See Rx Instructions .Route Qty: 3 5RF Rx Instructions: As directed metformin 500 mg tablet extended release 24 hr 2,000 mg PO DAILY Qty: 360 1RF metoprolol succinate 25 mg tablet extended release 24 hr 25 mg PO DAILY Qty: 90 1RF omeprazole 20 mg capsule,delayed release(DR/EC) 20 mg PO DAILY Qty: 90 1RF Mounjaro 7.5 mg/0.5 mL pen injector 7.5 mg subcut WEEKLY Qty: 2 0RF Follow-up/Referrals: Drew Green MD [Physician] - Anila Fairchild DO [Primary Care Provider] -
[2024-07-16 20:49] LABS: Basophils Percent Auto 0.4 % (0.2-1.2); Eosinophils Absolute Auto 0.2 K/mm3 (0-0.3); Eosinophils Percent Auto 2.3 % (0-4.4); Hematocrit 41.2 % (37.0-47.0); Hemoglobin 13.7 g/dL (12.0-15.0); Immature Granulocyte Absolute 0.03 K/mm3 (0.00-0.031); Immature Granulocyte Percent A 0.3 % (0-0.5); Lymphocytes Absolute Auto 3.49 K/mm3 (0.9-3.2); Lymphocytes Percent Auto 34.6 % (18.3-44.2); Mean Corpuscular HGB Conc 33.3 g/dl (32-36); Mean Corpuscular Hemoglobin 27.3 pg (26-34); Mean Corpuscular Volume 82.2 fl (80-100); Mean Platelet Volume 9.5 fl (7.4-10.4); Monocytes Absolute Auto 0.8 K/mm3 (0.1-0.6); Monocytes Percent Auto 7.5 % (2.6-8.5); Neutrophils Absolute Auto 5.5 K/mm3 (1.3-6.7); Neutrophils Percent Auto 54.9 % (45.5-73.1); Platelet Count Result 272 k/mm3 (150-375); Red Blood Count 5.01 M/mm3 (4.2-5.4); Red Cell Distribution Width 12.8 % (11.5-14.5); White Blood Count 10.1 K/mm3 (4.5-10.0)
[2024-07-16 21:01] LABS: Alanine Aminotransferase 15 U/L (6-35); Albumin Level 4.2 g/dL (3.5-5.1); Alkaline Phosphatase 81 U/L (38-126); Anion Gap 9 mmol/L (4-12); Aspartate Amino Transferase 16 U/L (14-36); Bilirubin,Total 0.5 mg/dL (0.2-1.3); Blood Urea Nitrogen 10 mg/dL (7-17); Calcium 9.5 mg/dL (8.4-10.2); Carbon Dioxide 29 mmol/L (22-30); Chloride 100 mmol/L (98-107); Estimated CRCL calculation 105 ml/min; Estimated Glomerular Filt Rate > 60; Glucose 135 mg/dL (65-110); Potassium 3.8 mmol/L (3.4-5.0); Sodium 138 mmol/L (137-145)
--- OUTSIDE RECORDS SUMMARY | 2024-07-16 22:11 | XMS_ITS | Encounter Summary ---
Author Organization [facility] - [facility] Address [address] [place] [address] Care Team Providers Care Preparation Operator Name Role Phone Kael Scott MD Primary Care Provider [phone] Encounter Details Date Type Department Care Team (Late st Contact Info) Description 11/14/2018 Abstract SFL CONVERSION [address] [place] [address] , Generic Conversion, Social History Tobacco [...] Rule Out 05/13/2020 05/13/2020 05/14/2020 5:53 PM DENTISTRY PROFESSOR COVID-19 Confirmed Comment:Known COVID-19 positive per chart, symptom onset 02/22/21 per chart, confirmed positive w/ [facility] Dept[facility] Public Health (JJ) In collaboration with 4th floor manager english, Dr. Bonilla, and IP, patient cleared from COVID-19 isolation per [facility] guidelines (JJ) 03/05/2021 03/05/202103/06 3:48 PM CDT documented as of this encounter Care Teams Preparation Operator Relationship Specialty Start Date End Date Kael Scott MD [address] [place] [id number] PCP - General FAMILY PRACTICE 06/04/19 documented as of this encounter
--- OUTSIDE RECORDS SUMMARY | 2024-07-16 22:11 | XMS_ITS | Clinical Summary ---
Author Organization [facility] Address [address] [place] [address] Care Team Providers Care Marketing Finance Specialist Name Role Phone Kael Scott MD Primary Care Provider [phone] Allergies Active Allergy Reactions Criticality Noted Date Comments Aspirin GI Upset 05/09/2020 Sumatriptan Shortness of Breath High 05/09/2020 Medications atorvastatin 80 MG tabletIndicati ons:Hyperlipid emia Take 40 mg by mouth nightly at bedtime. 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 Never 03/04/2021 Do you belong to any clubs o r organizations such as uatsdin groups, unions, fraternal or athletic groups, or [...] move on to questions 3-9 0 03/04/2021 [facility] of Occupat ional Health - Occupational Stress [...] place to sleep or slept in a fci (including now)? No 03/04/2021 Comments No Sex [...] 9.4(H) <5.7 % 03/05/2021 6:30 AM CDT [facility] ESTIMATED AVG GLUCOSE 223(H) 74 - 114 MG/DL 03/05/2021 6:30 AM CDT [facility] 03/05/2021 5:20 AM CDT Chaya Hernandez MD LABORATORY Final Result Performing Organization Address City/State/[facility] Co de Phone Number [facility] [address] [place] [address], [phone] from Last 3 Months or Most Recently Relevant to Health Maintenance Insurance ROSIO RAYA [phone] [employer] Advance Directives * Full Code (Latest Code Status on File) Date Activated Date Inactivated Comments 03/05/2021 3:35 AM 03/07/2021 4:32 PM * Full Code Date Activated Date Inactivated Comments 03/04/2021 11:12 PM 03/05/2021 3:32 AM * Full Code Date Activated Date Inactivated Comments 05/16/2020 2:06 PM 05/17/2020 2:09 PM Care Teams Marketing Finance Specialist Relationship Specialty Start Date End Date Kael Scott MD [address] [place] [address] PCP - General FAMILY PRACTICE 06/04/19
[2024-07-16 23:17] VITALS: BP 121/67; PULSE 91; RESP 14; O2SAT 100
== END 2024-07-16 23:27 | disposition home or self-care (01) ==
PROVIDERS: Emergency Provider Physician Assistant; PCP Family Medicine
DX: N20.0 Calculus of kidney (principal); E11.9 Type 2 diabetes mellitus without complications; Z87.891 Personal history of nicotine dependence
CPT/HCPCS: 36415; 74018; 74176; 80053; 81003; 85025; 99284

== ENCOUNTER 2024-07-21 08:14 | Outpatient (CLI) | payer OTHER, SELFPAY ==
--- OUTSIDE RECORDS SUMMARY | 2024-07-21 08:35 | XMS_ITS | Encounter Summary ---
Author Organization [facility] - [facility] Address [address] [place] [address] Care Team Providers Care Pastry Finisher Name Role Phone Kael Scott MD Primary Care Provider [phone] Encounter Details Date Type Department Care Team (Late st Contact Info) Description 11/14/2018 Abstract SFL CONVERSION [address] [place] [address] , Generic Conversion, Social History Tobacco [...] Rule Out 05/13/2020 05/13/2020 05/14/2020 5:53 PM SYSTEMS ANALYSIS MANAGER COVID-19 Confirmed Comment:Known COVID-19 positive per chart, symptom onset 02/22/21 per chart, confirmed positive w/ [facility] Dept. Public Health (JJ) In collaboration with 4th floor care manager cna, Dr. Bonilla, and IP, patient cleared from COVID-19 isolation per [facility] guidelines (JJ) 03/05/2021 03/05/202103/06 3:48 PM CDT documented as of this encounter Care Teams Pastry Finisher Relationship Specialty Start Date End Date Kael Scott MD [address] [place] [id number] PCP - General FAMILY PRACTICE 06/04/19 documented as of this encounter
--- OUTSIDE RECORDS SUMMARY | 2024-07-21 08:35 | XMS_ITS | Clinical Summary ---
Author Organization [facility] Address [address] [place] [address] Care Team Providers Care Bulldozer Press Operator Name Role Phone Kael Scott MD Primary Care Provider Allergies Active Allergy Reactions Criticality Noted Date Comments Aspirin GI Upset 05/09/2020 Sumatriptan Shortness of Breath High 05/09/2020 Medications atorvastatin 80 MG tabletIndicati ons:Hyperlipid emia Take 40 mg by mouth nightly at bedtime. Indications: High Amount of Fats in the Blood 8 Active Multiple Vitamins-Obion als (MULTIVITAMIN ADULTS OR)Indications :Nutritional Support Take [...] diabetes mellitus wit hout complication, unspecified whether principal software architect insulin use ([facility]) 03/04/2021 Overview (03/04/2021): Without mcfp insulin use DKA (diabetic ketoacidosis) ([facility]) Pneumonia due to COVID-19 virus 03/03/2021 Immunizations [...] How often do you attend chur or jew services? Never 03/04/2021 Do you belong to [...] move on to questions 3-9 0 03/04/2021 [facility] [place] of Occupat ional Health - Occupational Stress [...] place to sleep or slept in a assisted (including now)? No 03/04/2021 Comments No Sex [...] 9.4(H) <5.7 % 03/05/2021 6:30 AM CDT [facility] ESTIMATED AVG GLUCOSE 223(H) 74 - 114 MG/DL 03/05/2021 6:30 AM CDT [facility] 03/05/2021 5:20 AM CDT Chaya Hernandez MD LABORATORY Final Result Performing Organization Address City/State/[facility] Co de Phone Number [facility] [address] [place] [address], [id number] from Last 3 Months or Most Recently Relevant to Health Maintenance Insurance ROSIO RAYA [phone] [employer] Advance Directives * Full Code (Latest Code Status on File) Date Activated Date Inactivated Comments 03/05/2021 3:35 AM 03/07/2021 4:32 PM * Full Code Date Activated Date Inactivated Comments 03/04/2021 11:12 PM 03/05/2021 3:32 AM * Full Code Date Activated Date Inactivated Comments 05/16/2020 2:06 PM 05/17/2020 2:09 PM Care Teams Bulldozer Press Operator Relationship Specialty Start Date End Date Kael Scott MD [address] [facility] [place] [phone] PCP - General FAMILY PRACTICE 06/04/19
[2024-07-21 09:03] LABS: INR 0.9; Prothrombin Time 12.7 Seconds (11.1-14.7)
[2024-07-21 09:04] LABS: Partial Thromboplastin Time 26.3 Seconds (22.3-36.8)
== END 2024-07-21 08:15 | disposition home or self-care (01) ==
LOC: ANHSURGERY 08:19
PROVIDERS: PCP Family Medicine; Visit Provider Urology
DX: N20.0 Calculus of kidney (principal)
CPT/HCPCS: 36415; 85610; 85730

== ENCOUNTER 2024-07-22 00:38 | Day surgery (SDC) | payer OTHER, SELFPAY ==
[2024-07-20 10:04] VITALS: BMI 34.7
--- NOTE | 2024-07-20 10:07 | PC.NURSE ---
Report to the Outpatient Waiting Room, entrance under the green pavilion located off [facility], at time _130pm_ on date _[id number]_. Planned Procedure Time: _330pm_.? Time changes happen often and if your time is changed the preop area will call you the afternoon before. - You and your visitor will be asked to self-screen and do not enter if you have any COVID symptoms. Please call surgeon if you need to reschedule. - A mask is optional within the hospital at this time. Patients may have clear liquids (water, carbonated beverages, clear teas, apple juice) until 3 hours prior to surgery with a maximum of 20 ounces. - No food from midnight until time of surgery and no smoking, or chewing tobacco (or any form of nicotine). No chewing gum, candy or mints. Take only the following medications with a SIP of water on the morning of surgery: __Metoprolol, Sertaline and if needed Tramadol DO NOT STOP ANY OF YOUR OTHER PRESCRIPTION MEDICATIONS PRIOR TO SURGERY EXCEPT THE FOLLOWING Hold all vitamins and supplements for 3 days per anesthesiologist. Medications to discontinue per physician ___Patient says will not take Meloxicam until after surgery. Date to take last pjup___[id number]____ Please no make-up, nail indonesian, hairspray, perfume, deodorant, or body powder the day of surgery.? No jewelry (including any body piercings) or valuables the day of surgery, leave them at home.? Please take a shower or bath the night before, or the morning of, surgery with an antibacterial soap.? Wear comfortable, loose fitting clothing. - Jewelry must be removed prior to entering the operating room.? Rings and piercings that are not removed may be cut off. - The hospital will not accept responsibility for valuables.? - Please leave all valuables, including medications, at home the day of surgery. If you are going home after surgery, a licensed crude oil driver must drive you home.? - NO public transportation without another adult if you receive anesthesia. - We recommend that an adult stay with you for 24 hours following discharge. - We also recommend that you do not drive, make important decision, drink alcoholic beverages, or take any drugs that were not prescribed by your health care provider for at least 24 hours after your discharge time. Follow any additional instructions given to you from your surgeon. Telephone instructions given to _Sheila___and asked if any additional questions and then verbalized understanding. Patient advised to call surgeon office or pre surgery nurse liaison [phone] if any additional questions.
[2024-07-22] VITALS (8 sets, daily range): BP systolic 104–129; BP diastolic 64–88; PULSE 98–114; RESP 14–20; TEMP 36.3–36.6; O2SAT 99–100
--- NOTE | ~2024-07-22 | XR_ITS ---
EXAMINATION: XR abdomen/kub 1V DATE: 07/22/2024 13:10 INDICATION: Kidney stone. TECHNIQUE: A supine view of the abdomen was obtained. COMPARISON: CT abdomen and pelvis 07/16/24 FINDINGS: There are no dilated loops of bowel. There is a 12 mm stone in left kidney. IMPRESSION: 1. 12 mm stone in left kidney. Reviewed, dictated and finalized at location A. OR LINUX ADMINISTRATOR
--- OUTSIDE RECORDS SUMMARY | 2024-07-22 00:41 | XMS_ITS | Encounter Summary ---
Author Organization [facility] - [facility] Address [address] [place] [address] Care Team Providers Care Strapping Machine Tender Name Role Phone Kael Scott MD Primary Care Provider [phone] Encounter Details Date Type Department Care Team (Late st Contact Info) Description 11/14/2018 Abstract SFL CONVERSION [address] [place] [address] , Generic Conversion, Social History Tobacco [...] Rule Out 05/13/2020 05/13/2020 05/14/2020 5:53 PM AERONAUTICS TEACHER COVID-19 Confirmed Comment:Known COVID-19 positive per chart, symptom onset 02/22/21 per chart, confirmed positive w/ [facility] Dept. Public Health (JJ) In collaboration with 4th floor credit risk manager, Dr. Bonilla, and IP, patient cleared from COVID-19 isolation per [facility] guidelines (JJ) 03/05/2021 03/05/202103/06 3:48 PM CDT documented as of this encounter Care Teams Strapping Machine Tender Relationship Specialty Start Date End Date Kael Scott MD [address] [place] [phone] PCP - General FAMILY PRACTICE 06/04/19 documented as of this encounter
--- OUTSIDE RECORDS SUMMARY | 2024-07-22 00:41 | XMS_ITS | Clinical Summary ---
Author Organization [facility] Address [address] [place] [address] Care Team Providers Care Mixing Machine Feeder Name Role Phone Kael Scott MD Primary Care Provider Allergies Active Allergy Reactions Criticality Noted Date Comments Aspirin GI Upset 05/09/2020 Sumatriptan Shortness of Breath High 05/09/2020 Medications atorvastatin 80 MG tabletIndicati ons:Hyperlipid emia Take 40 mg by mouth nightly at bedtime. Indications: High Amount of Fats in the Blood 8 Active Multiple Vitamins-Sawyer als (MULTIVITAMIN ADULTS OR)Indications :Nutritional Support Take [...] diabetes mellitus wit hout complication, unspecified whether terminal manager insulin use ([facility]) 03/04/2021 Overview (03/04/2021): Without fpc insulin use DKA (diabetic ketoacidosis) ([facility]) Pneumonia due to COVID-19 virus 03/03/2021 [...] How often do you attend chur or mandaeism services? Never 03/04/2021 Do you belong to any clubs o r organizations such as holiness groups, unions, fraternal or athletic groups, or [...] move on to questions 3-9 0 03/04/2021 [facility] [place] of Occupat ional Health - Occupational Stress [...] place to sleep or slept in a care home (including now)? No 03/04/2021 Comments No Sex [...] 9.4(H) <5.7 % 03/05/2021 6:30 AM CDT [facility] ESTIMATED AVG GLUCOSE 223(H) 74 - 114 MG/DL 03/05/2021 6:30 AM CDT [facility] 03/05/2021 5:20 AM CDT Chaya Hernandez MD LABORATORY Final Result Performing Organization Address City/State/[facility] Co de Phone Number [facility] [address] [place] [address], [id number] from Last 3 Months or Most Recently Relevant to Health Maintenance Insurance ROSIO RAYA [phone] [employer] Advance Directives * Full Code (Latest Code Status on File) Date Activated Date Inactivated Comments 03/05/2021 3:35 AM 03/07/2021 4:32 PM * Full Code Date Activated Date Inactivated Comments 03/04/2021 11:12 PM 03/05/2021 3:32 AM * Full Code Date Activated Date Inactivated Comments 05/16/2020 2:06 PM 05/17/2020 2:09 PM Care Teams Mixing Machine Feeder Relationship Specialty Start Date End Date Kael Scott MD [address] [place] [phone] PCP - General FAMILY PRACTICE 06/04/19
--- NOTE | 2024-07-22 06:38 | WPDHPUPDATE1 ---
History and Physical Update Update Date/Time: 07/22/24 06:38 History and Physical has been reviewed, including an updated exam of the patient. There are NO changes in the patient's condition. Risks, benefits, and alternatives have been discussed and questions answered. Patient agrees to proceed with procedure.
[2024-07-22] MEDS: LACTATED RINGERS 1,000 ML 30 ML IV CONT (13:45)
--- NOTE | 2024-07-22 13:48 | P.PNAN_ITS ---
Anes - Initial Pre Proc Eval Procedure: Operation Date: 07/22/24 15:30 Proposed Procedures p Left Renal Extracorporeal Shock Wave Lithotripsy - Keith Bustos MD Date/Time: 07/22/24 13:48 Surgeon: Keith Bustos MD Pre Op Diagnosis: left renal stone Patient Data Age: 49 Gender: F Height: 1.63 m Weight: 91.8 kg Allergies Allergy/AdvReac Type Severity Reaction Status Date / Time aspirin AdvReac Severe Difficulty Verified 07/20/24 09:59 Breathing empagliflozin (From AdvReac Severe Other Verified 07/20/24 09:59 Jardiance) sumatriptan (From Imitrex) AdvReac Severe Difficulty Verified 07/20/24 09:59 Breathing Home Medications ?Medication ?Instructions ?Recorded ?Confirmed ?Type cyclobenzaprine 10 mg tablet 10 mg PO TID PRN muscle spasm #30 09/05/23 07/20/24 Rx tabs ropinirole 0.5 mg tablet 0.5 mg PO QHS #90 tabs 01/02/24 07/20/24 Rx blood-glucose meter,continuous #1 ea 02/06/24 07/20/24 Rx (FreeStyle Natalia 3 [place]) blood-glucose sensor (FreeStyle #3 ea 02/06/24 07/20/24 Rx Natalia 3 Sensor device) metformin 500 mg tablet,extended 2,000 mg (4 x 500 mg) PO DAILY 03/11/24 07/20/24 Rx release 24 hr #360 tabs metoprolol succinate 25 mg 25 mg PO DAILY #90 tabs 03/29/24 07/20/24 Rx tablet,extended release 24 hr omeprazole 20 mg capsule,delayed 20 mg PO DAILY #90 caps 05/31/24 07/20/24 Rx release atorvastatin 20 mg tablet (Lipitor) 20 mg PO QHS #90 tabs 06/29/24 07/20/24 Rx lisinopril 2.5 mg tablet 2.5 mg PO DAILY #90 tabs 06/29/24 07/20/24 Rx meloxicam 7.5 mg tablet 7.5 mg PO DAILY #90 tabs 06/29/24 07/20/24 Rx sertraline 100 mg tablet 100 mg PO DAILY 06/29/24 07/20/24 History tirzepatide 7.5 mg/0.5 mL 7.5 mg (0.5 mL) subcut WEEKLY #2 mL 07/15/24 07/20/24 Rx subcutaneous pen injector (Corinna) tramadol 50 mg tablet 50 mg PO Q6H PRN pain 07/20/24 07/20/24 History Patient hx anesthesia problems: none Family hx anesthesia problems: none Results Review: All pre-operative results and documents have been reviewed as part of the pre- operative evaluation. PMFSH Past Medical History Medical History Hypertriglyceridemia Tachycardia Diabetes Surgical History Surgical History History of hysterectomy Family History Family History Father Diabetes mellitus Mother Diabetes mellitus Grandparent Diabetes mellitus Social History Social History Social History: Tea 1 cup daily Smoking packs per day: 1.5 Smoking cigarettes per day: 30.0 Years smoked: 15 Smoking pack-years: 22.50 Smoking status: Former smoker Tobacco type: cigarettes Smoking end date: 07/20/07 Alcohol intake: never Substance use: never Substance use type: does not use Living arrangements: with family Spiritual care concerns: No Anes - Eval Final PreProcedure Day of Procedure 07/22/24 13:48 Patient weight: obese Heart: regular rate and rhythm Lungs: clear to auscultation Airway: Mallampati scale class II Neurological: alert and oriented Last oral intake: >/= 8 hours ASA classification: III Emergent: no Anesthetic plan: proceed Anesthesia type and monitoring: general GIVS and standard monitoring Results Review: All pre-operative results and documents have been reviewed as part of the pre- operative evaluation. Informed Consent: The patient's anesthetic plan and its attendant risks and benefits were discussed with the patient/family/POA. Questions were solicited and answers provided to the satisfaction of the patient/family/POA.
[2024-07-22 14:13] LABS: Glucose Point of Care 152 mg/dl (65-105)
[2024-07-22] MEDS: ceFAZolin 2 GM/D5W 50 ML 2 GM/50 ML BAG IVPB (14:33)
--- NOTE | 2024-07-22 14:33 | P.HP_ITS ---
History of Present Illness History of Present Illness Consent: Risks, benefits, and alternatives have been discussed and questions answered. Patient agrees to proceed with procedure. Chief complaint: left renal stone Narrative: Sheila Snyder is a 49 year old female without prior urological history until approximately 8-9 days ago when she developed moderately intense left flank pain. CT imaging demonstrates a calcified 1 cm left lower calyceal stone. After discussion of therapeutic options she has elected for left ESWL. She is aware the risk including, but not limited to, need for additional procedures, hematuria, perinephric hematoma. Review of Systems Review of Systems: All systems reviewed & are unremarkable except as noted in HPI and below PMFSH Past Medical History Medical History Hypertriglyceridemia Tachycardia Diabetes Surgical History Surgical History History of hysterectomy Family History Family History Father Diabetes mellitus Mother Diabetes mellitus Grandparent Diabetes mellitus Social History Social History Social History: Tea 1 cup daily Smoking packs per day: 1.5 Smoking cigarettes per day: 30.0 Years smoked: 15 Smoking pack-years: 22.50 Smoking status: Former smoker Tobacco type: cigarettes Smoking end date: 07/20/07 Alcohol intake: never Substance use: never Substance use type: does not use Living arrangements: with family Spiritual care concerns: No Meds Home Medications and Allergies Home Medications ?Medication ?Instructions ?Recorded ?Confirmed ?Type cyclobenzaprine 10 mg tablet 10 mg PO TID PRN muscle spasm #30 09/05/23 07/22/24 Rx tabs ropinirole 0.5 mg tablet 0.5 mg PO QHS #90 tabs 01/02/24 07/22/24 Rx blood-glucose meter,continuous #1 ea 02/06/24 07/20/24 Rx (FreeStyle Natalia 3 [place]) blood-glucose sensor (FreeStyle #3 ea 02/06/24 07/20/24 Rx Natalia 3 Sensor device) metformin 500 mg tablet,extended 2,000 mg (4 x 500 mg) PO DAILY 03/11/24 07/22/24 Rx release 24 hr #360 tabs metoprolol succinate 25 mg 25 mg PO DAILY #90 tabs 03/29/24 07/22/24 Rx tablet,extended release 24 hr omeprazole 20 mg capsule,delayed 20 mg PO DAILY #90 caps 05/31/24 07/22/24 Rx release atorvastatin 20 mg tablet (Lipitor) 20 mg PO QHS #90 tabs 06/29/24 07/22/24 Rx lisinopril 2.5 mg tablet 2.5 mg PO DAILY #90 tabs 06/29/24 07/22/24 Rx meloxicam 7.5 mg tablet 7.5 mg PO DAILY #90 tabs 06/29/24 07/22/24 Rx sertraline 100 mg tablet 100 mg PO DAILY 06/29/24 07/20/24 History tirzepatide 7.5 mg/0.5 mL 7.5 mg (0.5 mL) subcut WEEKLY #2 mL 07/15/24 07/22/24 Rx subcutaneous pen injector (Corinna) tramadol 50 mg tablet 50 mg PO Q6H PRN pain 07/20/24 07/22/24 History Allergies Allergy/AdvReac Type Severity Reaction Status Date / Time aspirin AdvReac Severe Difficulty Verified 07/20/24 09:59 Breathing empagliflozin (From AdvReac Severe ketoacidosi Verified 07/22/24 13:59 Jardiance) s sumatriptan (From Imitrex) AdvReac Severe Difficulty Verified 07/20/24 09:59 Breathing Vital Signs Vital Signs - 24 hr 07/22/24 13:34 Temperature 97.3 F L Pulse Rate 114 H Respiratory Rate 20 Blood Pressure 104/71 Pulse Oximetry 100 Oxygen Delivery Room Air Exam Const: General: no acute distress Resp: Effort & Inspection: normal respiratory effort GI: Inspection: non-distended GI Palp: No abdominal tenderness and No Guarding due to palpation present (GI) Auscultation: normal bowel sounds Assessment and Plan Assessment and plan (1) Left renal stone: Code(s): N20.0 - Calculus of kidney Status: Acute Assessment and Plan: * Left ESWL
[2024-07-22 15:22] LABS: Glucose Point of Care 137 mg/dl (65-105)
--- NOTE | 2024-07-23 08:44 | W.PM.PROC2 ---
Procedure Note - Detailed Date of Procedure 07/23/24 Pre-op Diagnosis Left renal stone Post-op Diagnosis Same Procedure Performed Left ESWL Surgeon Keith Bustos MD Anesthesia General Description of Procedure The patient was brought to the operative suite where she was placed in the supine position on the Dornier lithotripsy table. The focal point of the lithotripter was placed at a 1cm left renal calculus. A total of 2500 shocks were delivered at a power setting of 4. There appeared to be good fragmentation of the stone. The patient tolerated the procedure well and was taken to the recovery room in good condition.
== END 2024-07-22 16:48 | disposition home or self-care (01) ==
PROVIDERS: PCP Family Medicine; Visit Provider Urology
PROC: (CPT 50590; principal; 2024-07-22 15:30)
DX: N20.0 Calculus of kidney (principal); E11.9 Type 2 diabetes mellitus without complications; E78.1 Pure hyperglyceridemia; R00.0 Tachycardia, unspecified; E66.9 Obesity, unspecified; Z68.35 Body mass index [BMI] 35.0-35.9, adult; Z79.84 Long term (current) use of oral hypoglycemic drugs; Z79.891 Long term (current) use of opiate analgesic; Z79.85 Long-term (current) use of injectable non-insulin antidiabetic drugs; Z98.890 Other specified postprocedural states; Z87.891 Personal history of nicotine dependence
CPT/HCPCS: 50590; 74018; 82948; J0690; J1100; J2003; J2250; J2405; J2704; J3010; J7120

== ENCOUNTER 2024-08-09 07:18 | Outpatient (CLI) | payer OTHER, SELFPAY | END 2024-08-09 07:19 | disposition home or self-care (01) | LOC: CHSIMG 07:19 | PROVIDERS: PCP Family Medicine; Visit Provider Family Medicine | DX: Z12.31 Encounter for screening mammogram for malignant neoplasm of breast (principal) | CPT/HCPCS: 77063; 77067 ==

== ENCOUNTER 2025-01-14 10:44 | Outpatient (CLI) | payer OTHER, SELFPAY ==
[2025-01-14 13:53] LABS: Hematocrit 42.7 % (37.0-47.0); Hemoglobin 13.6 g/dL (12.0-15.0); Mean Corpuscular HGB Conc 31.9 g/dl (32-36); Mean Corpuscular Hemoglobin 26.2 pg (26-34); Mean Corpuscular Volume 82.3 fl (80-100); Platelet Count Result 314 k/mm3 (150-375); Red Blood Count 5.19 M/mm3 (4.2-5.4); White Blood Count 9.9 K/mm3 (4.5-10.0)
[2025-01-14 14:05] LABS: Hemoglobin A1C 9.3 % (<5.7)
[2025-01-17 13:18] LABS: Alanine Aminotransferase 17 U/L (6-35); Albumin Level 4.4 g/dL (3.5-5.1); Alkaline Phosphatase 90 U/L (38-126); Anion Gap 14 mmol/L (4-12); Aspartate Amino Transferase 45 U/L (14-36); Bilirubin,Total 0.4 mg/dL (0.2-1.3); Blood Urea Nitrogen 15 mg/dL (7-17); Calcium 9.6 mg/dL (8.4-10.2); Carbon Dioxide 20 mmol/L (22-30); Chloride 102 mmol/L (98-107); Cholesterol 256 mg/dL (0-200); Estimated Glomerular Filt Rate > 60; Glucose 174 mg/dL (65-110); HDL Direct 75 mg/dL; Potassium 4.8 mmol/L (3.4-5.0); Sodium 136 mmol/L (137-145); Total Protein 7.8 g/dL (6.3-8.2); Triglycerides 108 mg/dL (<150)
[2025-01-17 13:54] LABS: Thyroid Stimulating Hormone 1.430 uIU/mL (0.465-4.680)
== END 2025-01-14 10:45 | disposition home or self-care (01) ==
LOC: ANHGOSHLAB 10:45
PROVIDERS: PCP Family Medicine; Visit Provider Family Medicine
DX: E78.5 Hyperlipidemia, unspecified (principal); E66.9 Obesity, unspecified; Z79.899 Other long term (current) drug therapy; E11.9 Type 2 diabetes mellitus without complications
CPT/HCPCS: 36415; 80053; 80061; 83036; 84443; 85027